=== PATIENT | male | born 1975 | race Caucasian/White ===

== ENCOUNTER → 2017-01-29 | Day surgery (SDC) | payer OTHER ==
[~2017-01-29] MED LIST: NO MEDICATIONS
--- NOTE | ~2017-01-29 | OR ---
Unit #: [id number] #: [id number] Patient: RAY OWENS [id number] [address] [id number] [id number] MR#: [id number] NAME: RAY OWENS ROOM: Date of Procedure: 01/29/2017 Admission Date: 01/29/2017 Surgeon: Gerber Giordano M.D. : 1975 Attending Physician: Gerber Giordano M.D. Primary Care Physician: Milena Coto M.D. PROCEDURE OPERATIVE NOTE PROCEDURE Esophagogastroduodenoscopy with biopsy. PREOPERATIVE DIAGNOSIS Epigastric pain. POSTOPERATIVE DIAGNOSIS Gastric antral origins, reflux and esophagitis. ENDOSCOPIST Gerber Giordano M.D. ANESTHESIA Monitored care. DESCRIPTION OF PROCEDURE After adequate explanation of the risks, benefits and alternatives of the procedure, an informed consent by the patient was obtained. The patient was brought to the Endoscopy Suite. Intravenous sedation was administered. With the patient lying in the left lateral position and after placing the mouthpiece in the mouth, after adequate visualization of the vocal cords, a laryngoscopy was also done and the scope was passed via cricopharyngeus into the esophagus. After this, the esophageal mucosa was examined with an examination of the proximal, middle, and distal esophagus. The scope was then advanced into the stomach where a retroflexed view was obtained to examine the fundus and the angularis incisura. The lesser and greater curvature were examined. After adequate air insufflation, the antrum was then examined. The scope was then advanced to the pylorus and the scope was passed via pylorus up to the descending duodenum. The duodenal bulge and descending duodenum were examined very well. The scope was slowly withdrawn. The patient tolerated the procedure very well. FINDINGS LARYNGOSCOPY: ESOPHAGUS: Proximal esophagus normal. Middle esophagus normal. Distal esophagus with evidence of reflux esophagitis. STOMACH: Fundus normal. ANGULARIS INCISURA: Normal. Unit #: [id number] #: [id number] Patient: RAY OWENS LESSER CURVATURE: Normal. GREATER CURVATURE: Normal. ANTRUM: Superficial erosions. Biopsy obtained, sent to Pathology. No polyp or deformity. DUODENUM: Bulb normal. DUODENUM: Descending duodenum normal. ASSESSMENT AND PLAN This is a 41-year-old male presenting with epigastric pain. EGD shows evidence of antral erosions, reflux and esophagitis. He will be placed on proton pump inhibitors and antispasmodic agent. Biopsy results will be reviewed to make further recommendations. Dictated by... Kevin Dunn/charli TD: 01/29/2017 17:15 JOB #: [id number] PROCEDURE OPERATIVE NOTE Page 1 of 1 X Gerber Gioradno MD X PROCEDURE OPERATIVE NOTE
== END | disposition home or self-care (01) ==
LOC: COPS 12:35
DX: K29.50 Unspecified chronic gastritis without bleeding (principal); K21.0 Gastro-esophageal reflux disease with esophagitis
CPT/HCPCS: 88305; 88312; J2250